=== PATIENT | female | born 1950 | race Caucasian/White ===

== ENCOUNTER 2017-11-28 11:08 | Emergency (ER) | payer MEDICARE ==
[~2017-11-28] VITALS: Ht 165.1 cm; Wt 71.2 kg
[2017-11-28] MEDS ORDERED: CIPRO500 MG PO (14:35)
[2017-11-28] MEDS ORDERED: FLAGYL500 MG PO (14:35)
== END 2017-11-28 14:52 | disposition home or self-care (01) ==
LOC: ED 11:08
DX: K57.92 Diverticulitis of intestine, part unspecified, without perforation or abscess without bleeding (principal)
CPT/HCPCS: 74177; 80053; 81001; 83605; 83690; 85025; 85610; 96374; 99284; J2405; J7030; Q9967

== ENCOUNTER 2018-01-20 07:24 | Day surgery (SDC) | payer MEDICARE ==
[~2018-01-20 07:24] MED LIST: CIPRO500 MG PO; FLAGYL500 MG PO
[2018-01-20] MEDS ORDERED: ASPIR-TRIN325 MG PO (07:44)
[2018-01-20] MEDS ORDERED: PRILOSEC OTC20 MG PO (07:45)
--- NOTE | 2018-01-20 08:56 | NUR ---
01/20/18 0856 Maegan Izaguirre 0895 PT ARRIVED IN PACU SLEEPY WITH NO C/O'S.
--- NOTE | 2018-01-21 07:33 | OR ---
[facility] [address], [place] [address] Signed DATE OF OPERATION: 01/20/2018 SURGEON: Jose Felix MD UPPER ENDOSCOPY REPORT PREOPERATIVE DIAGNOSES: 1. Epigastric abdominal pain. 2. Hiatal hernia. 3. Distal esophageal dysphagia. POSTOPERATIVE DIAGNOSES: 1. Large hiatal hernia (43-33 cm). 2. Mild gastroduodenitis. PROCEDURES: EGD with CLOtest and biopsies of the duodenum, pyloric bulb and antrum. ESTIMATED BLOOD LOSS: None. INDICATIONS: Ozzie is a 67-year-old female who has been having trouble with epigastric pain and distal esophageal dysphagia. She points at the xiphoid process. She is known to have hiatal hernia. I had met with Ozzie in the office and we had ordered a barium swallow as well. In the meantime, we scheduled her for the upper endoscopy. I gave her a pamphlet on upper endoscopy. We looked at that together in detail. She understands the nature of the test along with the risks including, but not limited to gas bloating, crampy abdominal pain, bleeding, perforation, requiring surgery, and missed diagnosis. We also discussed the need for IV conscious sedation. She had expressed understanding and wished to proceed. In addition, I gave her a [employer] brochure on acid reflux and we had gone through that in detail. She is quite aware there is surgery available for hiatal hernias. DESCRIPTION OF PROCEDURE: Ozzie was taken into our endoscopy suite and placed in the supine semi-recumbent position. She was given 6 mg of Versed and I think 100 mcg of fentanyl. The posterior oropharynx was anesthetized with Hurricaine spray. A bite block was utilized for the case. The adult gastroscope was introduced and advanced all the way down the esophagus and into the hiatal hernia itself. We could see a fairly large area of gastric mucosa Electronically Signed By: JOSE FELIX MD 01/21/18 0733 PATIENT NAME: OZZIE ESTRADA OPERATIVE REPORT DATE OF : 52 REPORT #: [id number] PHYSICIAN: JOSE FELIX MD PCP: FLAVIA KUHN MD REPORT IS CONFIDENTIAL AND NOT TO BE RELEASED WITHOUT AUTHORIZATION [facility] [address], [place] [address] Signed off to the side and it took us a few minutes to find the exit point. In the end, we discovered this was all part of her hiatal hernia. I could see radial folds of gastric mucosa, so I slowly into that area and with gentle pressure, went through and out into the body of the stomach and the antrum itself. At that point, anatomy was a little more clear. We followed that to the pyloric bulb and out into the duodenum itself. We took a biopsy of the duodenum as well as the pyloric bulb. There was just a little bit of irritation in the pyloric bulb and the distal half of the stomach. An additional biopsy was taken from the antrum for CLOtest as well as pathologic review. The scope had been retroflexed and we can see that she has a large hiatal hernia. The scope was withdrawn up through the area of the diaphragmatic crura and back into the hiatal hernia. She has a fairly large pouch involving the hiatal hernia off to the side. The crura measured at 43 cm. Eventually got the camera back to the GE junction and it measured out at 33 cm. Fortunately, no evidence of any irritation or ulceration in the hiatal hernia itself. It is clear that the food is entering this large hiatal hernia and then slowly exiting into the stomach and this is her sense of dysphagia. There was no disruption to the Z-line. No Carney's mucosa. No distal esophagitis. The middle and upper esophagus were unremarkable. After this, the gas was suctioned out and the gastroscope removed. Ozzie tolerated her procedure quite well. RECOMMENDATIONS: I will see Ozzie back in my office in the next 7-10 days. We will review the barium swallow as well as the upper endoscopy. It looks like she is going to need surgery to correct this large hiatal hernia. Jose Felix MD ALB/MODL /[id number] cc: Jose Felix MD Copies: JOSE FELIX MD ~ Electronically Signed By: JOSE FELIX MD 01/21/18 0733 PATIENT NAME: OZZIE ESTRADA OPERATIVE REPORT DATE OF : 52 REPORT #: [id number] PHYSICIAN: JOSE FELIX MD PCP: FLAVIA KUHN MD REPORT IS CONFIDENTIAL AND NOT TO BE RELEASED WITHOUT AUTHORIZATION
== END 2018-01-20 09:47 | disposition home or self-care (01) ==
LOC: DS 07:24 → OPS 07:24 → DS 09:00 → OPS 09:47
PROVIDERS: Colon & Rectal Surgery
PROC: 0DB78ZX Excision of Stomach, Pylorus, Via Natural or Artificial Opening Endoscopic, Diagnostic (ICD-10-PCS; 2018-01-20)
PROC: 0DB98ZX Excision of Duodenum, Via Natural or Artificial Opening Endoscopic, Diagnostic (ICD-10-PCS; principal; 2018-01-20 09:00)
DX: K29.90 Gastroduodenitis, unspecified, without bleeding (principal); K26.9 Duodenal ulcer, unspecified as acute or chronic, without hemorrhage or perforation; K44.9 Diaphragmatic hernia without obstruction or gangrene; Z79.899 Other long term (current) drug therapy
CPT/HCPCS: 86677; 88305; 99153; G0500; J2250; J3010; J7120

== ENCOUNTER 2018-03-18 06:01 | Emergency (ER) | payer MEDICARE ==
[~2018-03-18] VITALS: Ht 165.1 cm; Wt 59.0 kg
[~2018-03-18 06:01] MED LIST changes: +ASPIR-TRIN325 MG PO; +PRILOSEC OTC20 MG PO
[2018-03-18] MEDS ORDERED: ZANTAC150 MG PO (06:33)
[2018-03-18] MEDS ORDERED: ZOFRAN ODT4 MG PO (06:35)
== END 2018-03-18 06:58 | disposition home or self-care (01) ==
LOC: ED 06:01
DX: G89.29 Other chronic pain (principal); R10.13 Epigastric pain; E78.00 Pure hypercholesterolemia, unspecified; Z87.891 Personal history of nicotine dependence; Z79.899 Other long term (current) drug therapy
CPT/HCPCS: 99283

== ENCOUNTER 2021-05-09 10:55 | Inpatient (IN) | payer OTHER, MEDICARE ==
[~2021-05-09] VITALS: Ht 165.1 cm; Wt 64.3 kg
--- NOTE | ~2021-05-09 | DS ---
[facility] [address] [place], [place] [address] Draft ADMISSION DATE: 05/11/2021 DISCHARGE DATE: 05/14/2021 ADMISSION DIAGNOSIS: Left intertrochanteric hip fracture. DISCHARGE DIAGNOSIS: Left intertrochanteric hip fracture. PROCEDURE PERFORMED DURING THIS HOSPITALIZATION: Open reduction and internal fixation of left hip. BRIEF HISTORY: Ozzie is a 70-year-old female who suffered a ground level fall after catching her foot on a blanket. She landed directly on the left side. She ended up with a left femoral neck fracture as well as a proximal radius fracture. The radius fracture was elected to be treated nonoperatively; however, the intertrochanteric fracture needed surgery. Risks and benefits of this were discussed with her and she elected to proceed. She was taken to the operating room, underwent the procedure the next day after medical clearance. She tolerated the procedure well and was taken to the recovery room orthopedic floor. She was seen by Physical therapy and able to ambulate up and down the ackerman and up and down the stairs by the day of discharge. She was kept on DVT prophylaxis SCDs, TEDs, and aspirin per her previous protocol. She will be continued on this at home. Pain control was adequate throughout her hospitalization. She remained neurovascularly stable. She will be discharged to home with the above medications and follow up with me in 7-10 days. Evelio Lazaro MD BA/KAUR /[id number] Copies: PATIENT NAME: OZZIE ESTRADA DISCHARGE SUMMARY DATE OF : 52 REPORT #: [id number] PHYSICIAN: EVELIO LAZARO MD PCP: FLAVIA KUHN MD REPORT IS CONFIDENTIAL AND NOT TO BE RELEASED WITHOUT AUTHORIZATION [address] [address] Draft ~ PATIENT NAME: OZZIE ESTRADA DISCHARGE SUMMARY DATE OF : 52 REPORT #: [id number] PHYSICIAN: EVELIO LAZARO MD PCP: FLAVIA KUHN MD REPORT IS CONFIDENTIAL AND NOT TO BE RELEASED WITHOUT AUTHORIZATION
[~2021-05-09 10:55] MED LIST changes: +ZANTAC150 MG PO; +ZOFRAN ODT4 MG PO
--- OUTSIDE RECORDS SUMMARY | 2021-05-09 10:58 | XMS ---
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 Morales has no Care Guidelines for this patient. Marija VISIT COUNT (12 MO.) 1 LAUREANO Omalley TOTAL 1 NOTE: Visits indicate total known visits. ED/UCC VISIT TRACKING (12 MO.) 05/09/2021 10:56 LAUREANO [facility] [place] TYPE: Emergency COMPLAINT: - GLF, L ARM/HIP PAIN INPATIENT VISIT TRACKING (12 MO.) 07/14/2020 05:40 [facility] TYPE: Vascular Surgery DIAGNOSES: 00346. ABDOMINAL AORTIC ANEURYSM (AAA) WITHOUT RUPTURE 79852. Abdominal aortic aneurysm, without rupture [email or web address]
--- NOTE | 2021-05-09 17:35 | EKG ---
[facility] [address] [facility] [place] [facility] [place], [place] [address] Signed Normal sinus rhythm Inferior-posterior infarct , age undetermined Abnormal ECG No previous ECGs available Confirmed by BRENDAN MARC MD ([id number]) on 05/09/2021 5:35:46 PM Electronically Signed By: BRENDAN MARC MD 05/09/21 1735 PATIENT NAME: OZZIE ESTRADA Electrocardiogram DATE OF : 52 PHYSICIAN: BRENDAN MARC MD REPORT #: [id number] REPORT IS CONFIDENTIAL AND NOT TO BE RELEASED WITHOUT AUTHORIZATION
--- NOTE | 2021-05-09 19:15 | NUR ---
SHIFT REPORT RECEIVED FROM SARA MORALES. PT RESTING IN BED. NO NEEDS AT THIS TIME. CALL LIGHT IN REACH.
--- NOTE | 2021-05-09 22:00 | NUR ---
ASSESSMENT COMPLETED. SCHEDULED MEDS PROVIDED. PT LEFT HIP PAIN 8/, PRN PAIN MEDS PROVED. SCDs, MARCELLO HOSE AND HEEL PROTECTION ON. ICE PACKS PROVIDED. CMS INTACT. GCS 15, A&O X4. LUNGS CLEAR, HEART TONES REGULAR. ABD SOFT, NONTENDER, BOWEL TONES ACTIVE. NEW IV STARTED IN RIGHT FOREARM. RIGHT AC IV WNL, CDI, FLUSHED WELL. SLING ON LEFT ARM IN PLACE. LIMITED MOVEMENT OF LEFT ARM AND HIP/LEG. FENTON WNL. NO OTHER NEEDS. CALL LIGHT IN REACH.
--- NOTE | 2021-05-09 23:03 | NUR ---
ASSISTED NURSE WITH PATIENT MARCELLO CHAHAL, SCD'S, AND HEEL PROTECTORS. CALL LIGHT LEFT WITHIN REACH. NO OTHER IMMEDIATE NEEDS AT THIS TIME.
--- NOTE | 2021-05-10 01:00 | NUR ---
PT RESTING IN BED, EYES CLOSED. RR EVEN, UNLABRED. IV FLUIDS INFUSING PER ORDER. CALL LIGHT IN REACH.
--- NOTE | 2021-05-10 02:59 | NUR ---
SCHEDULED MED PROVIDED. CMS INTACT X4 EXTREMITIES. ASSESSMENT COMPLETED. GENERALIZED EDEMA IN LEFT HIP AND LEFT ELBOW. NO OTHER NEEDS. CALL LIGHT IN REACH.
--- NOTE | 2021-05-10 03:57 | NUR ---
PT RESTING IN BED, EYES CLOSED. RR EVEN, UNLABORED. CALL LIGHT IN REACH.
--- NOTE | 2021-05-10 05:00 | NUR ---
in to get vitals, with rn, linens change and surgical wipedown, kumar emptied at this time, no further needs
--- NOTE | 2021-05-10 06:12 | NUR ---
RECIEVED CALL FROM FROM BRISEIDA MORALES, DAY SURGERY CHARGE. MD HAS DELAYED PT SURGERY UNTIL NOON TODAY. PT HAS BEEN WIPED DOWN, LINENS AND GOWN CHANGED. THIS RN ASKED ABOUT 0600 ORAL PAIN MEDS BEING GIVEN, BRISEIDA MORALES STATES IT IS FINE TO GIVE THEM DUE TO THE DELAY.
--- NOTE | 2021-05-10 08:00 | NUR ---
REPORT RECEIVED FROM NIGHT RN AND PT. CARE RESUMED. PT. IS TEARFUL AND C/O SEVERE LEFT HIP PAIN THAT HAS NOT BEEN MANAGED BY SCHEDULED PAIN MEDS. MD NOTIFIED. GENERALIZED EDEMA PRESENT IN LT. HIP. ICE PACK IN PLACE. SCDS AND MARCELLO HOSE IN PLACE. IV SITES WNL AND FLUSH WELL. VITALS STABLE. GLYCERIN SWABS GIVEN. DISCUSSED PAIN MANAGEMENT, POST OP EXPECTATIONS AND MEDS. LEFT RESTING WITH CALL LIGHT IN REACH.
--- NOTE | 2021-05-10 08:55 | NUR ---
REPORT RECEIVED FROM NIGHT RN AND PT. CARE RESUMED. RN REPORTS PAIN HAS NOT BEEN WELL CONTROLLED OVER NIGHT. MD CALLED AND DILAUDID Q20 PRN ORDERED.
[2021-05-10] MEDS ORDERED: LISINOPRIL10 MG PO (09:48)
[2021-05-10] MEDS ORDERED: ATORVASTATIN CA40 MG PO (09:49)
--- NOTE | 2021-05-10 10:35 | NUR ---
PT. ASSISTED WITH SURG WIPE AND ADMIN IVP PAIN MED.
--- NOTE | 2021-05-10 11:26 | NUR ---
CONSTRUCTION ELECTRICIAN HERE FOR PT. LR INFUSING AND TXA, ANCEF HANGING. GLASSES, PHONE, TABLET LEFT WITH IN THE ROOM
--- NOTE | 2021-05-10 12:30 | NUR ---
PATIENT IN SURGERY. SPOKE WITH AFUA IN ROOM. PATIENT NORMALLY AMBULATORY USING NO DME. DRIVES. IS RETIRED. THEY HAVE 2 STEPS WITH RAIL INTO HOME. ONE LEVEL FOR LIVING. THEY HAVE WALK-IN SHOWER WITH SEAT. THEY DO HAVE WALKER AT HOME FROM HIS BROKEN LEG. HE WILL BRING IT IN TOMORROW FOR HER TO HAVE PT LOOK AT IT. HE DOES NOT THINK THEY NEED TO WORRY ABOUT COST OF MEDS/FOOD/UTILTIES. STATES "WELL WE LIVE ON TWO SOCIAL SECURITIES, BUT WE DO OK". HE STATES SHE WILL PROBABLY WANT TO DO PT AT [facility]. HE UNDERSTANDS WE DON'T KNOW WHAT ORDERS WILL BE FROM SURGEON YET. NO QUESTIONS AT THIS TIME. NO KNOWN BARRIERS TO HOME D/C AT THIS TIME.
--- NOTE | 2021-05-10 13:33 | NUR ---
05/10/21 1333 Thania Bennett 1311 PT ARRIVED TO PACU ON 6L VIA MASK, VSS. PT WAKES EASILY AND IS REORIENTED TO PACU. PT DENIES PAIN AND NAUSEA. PT UNABLE TO MOVE FEET AND SPINAL EDUCATION GIVEN. 1315 RN ENCOURGES DEEP BREATHING OFF AND ON DUE TO O2 DECREASED, O2 MAINTAINS WITH DEEP BREATHING. 1320 PT ASLEEP AND APNEA PERIOD NOTED. RN WAKES PT AND ENCOURAGES DEEP BREAHTING AND COUGHING. PT ABLE TO FOLLOW COMMAND. 1331 O2 REMOVED AND WARM BLACKET GIVEN.
--- NOTE | 2021-05-10 14:15 | NUR ---
PT. ARRIVED FROM SURGERY VIA STRETCHER AND REPORT RECEIVED FROM COMPOUND FILLER. PT IS ALERT AND ORIENTED. VITALS STABLE. LEFT HIP DRESSING HAS 3CM SHADOWING OF SERISANGUINOUS DRAINAGE AND OTHER MONK C.D.I. PT. DENIES PAIN. BILATERAL LOWER EXTREMITIES UP TO THE HIPS ARE NUMB DUE TO BLOCKS. LUNGS CLEAR THROUGHOUT. PT. GIVEN WATER, BLANKETS AND SCHEDULED MEDS. PT. LEFT RESTING WITH CALL LIGHT IN REACH AND AT BEDSIDE.
--- NOTE | 2021-05-10 15:30 | NUR ---
P.T. IN THE ROOM WORKING WITH PT. PT. IS ALERT AND ORIENTED. LEFT HIP DRESSING REMAINS UNCHANGED. MARCELLO HOSE, SCD IN PLACE AND ARM BRACE IN PLACE. VITALS STABLE. PT. ABLE TO MOVE LEGS AND IS CAN FEEL TOES AND LOWER EXTREMITIES. DENIES PAIN AT THIS TIME. TOLERATING PO WATER AND CRACKERS. LEFT RESTING WITH CALL LIGHT IN REACH.
--- NOTE | 2021-05-10 15:45 | NUR ---
PT. IS ALERT AND ORIENTED. SHE REPORTS VERY MILD LEFT HIP PAIN. ADMIN. TRAMADOL. VITALS STABLE. LEFT HIP DRESSING REMAINS UNCHANGED AND EDEMA PRESENT AT SITE. PT. ABLE TO FEEL LOWER EXTREMITY PRESSURE. BROUGHT APPLESAUCE AND CRACKERS. LEFT RESTING WITH CALL LIGHT IN REACH.
--- NOTE | 2021-05-10 16:30 | NUR ---
PT. IS ON THE PHONE WITH HER DAUGHTER. DENIES PAIN AT THIS TIME. LEFT HIP SURG SITE DRESSING HAS VERY SMALL AMOUNT OF SHADOWING. SITE IS FIRM AND EDEMA PRESENT. VITAL STABLE. TOLERATING SOFT FOODS AND SIPS OF WATER. DENIES NAUSEA. ICE CHANGED IN CRYOCUFF. PT. LEFT RESTING WITH CALL LIGHT IN REACH.
--- NOTE | 2021-05-10 16:57 | NUR ---
MED REC COMPLETE
--- NOTE | 2021-05-10 19:00 | NUR ---
SHIFT REPORT RECEIVED FROM DAYSHIFT RN PATRICE AT BEDSIDE, pt AWAKE AND RESTING IN BED. ACTICOAT DRESSING TO LEFT HIP INTACT WITH SMALL AMOUNT SEROSANGUINEOUS SHADOWING, WILL MONITOR. CYROCUFF IN PLACE ALONG WITH SCD'S, MARCELLO HOSE. LUE SPLINT IN PLACE, SET TO 90 DEGREES EARLIER BY . CALL LIGHT IN REACH, FRESH WATER GIVEN.
--- NOTE | 2021-05-10 20:45 | NUR ---
CALL LIGHT ANSWERED, pt REPORTS 8/10 PAIN. PRN NORCO GIVEN, SEE EMAR. pt BOOSTED IN BED, BLE ELEVATED WITH PILLOW. SCD'S AND MARCELLO HOSE IN PLACE. CYRO CUFF AT BEDSIDE. SKIN COLD TO THE TOUCH ABOVE LEFT HIP INCISION AND PINK IN COLOR. pt EDUCATED TO USE ICE INTERMITTENTLY TO ALLOW SKIN A BREAK FROM ICE, pt VERBALIZED UNDERSTANDING. NO FURTHER NEEDS, CALL LIGHT IN REACH.
--- NOTE | 2021-05-10 22:20 | NUR ---
SCHEDULED PAIN MEDICATION GIVEN, SEE EMAR. pt CONTINUES TO REPORT PAIN 03/20. NO FURTHER NEEDS, CALL LIGHT IN REACH. LUE SPLINT REMAINS AT 90 DEGREES, PLACED AND SET EALIER BY ON . CMS INTACT TO BLE AND BUE. MARCELLO HOSE AND SCD'S IN PLACE. pt REPORTS BEING ABLE TO FEEL ABOVE ANKLE, BUT ALSO REPORTS SHE CAN FEEL HER LEFT HIP, WILL CONTINUE TO MONITOR. NO FURTHER NEEDS. CALL LIGHT IN REACH.
--- NOTE | 2021-05-11 01:00 | NUR ---
pt BOOSTED IN BED WITH HELP FROM NEELA SIU, pt AWOKE TO VOICE AND REPORTS PAIN WAS "BETTER" AFTER LAST PAIN MEDICATION ADMINISTRATION. NO FURTHER NEEDS, CALL LIGHT IN REACH.
--- NOTE | 2021-05-11 02:30 | NUR ---
IN ROOM FOR SCHEDULED PAIN MEDICATION, SEE EMAR. pt REPORTS PAIN IMPROVED AND CURRENTLY RATES 4/10 ON PAIN SCALE. FIELD START REMOVED, CATHETER TIP INTACT. pt REPORTS CMS IS IMPROVING AND CAN FEEL UP TOWARDS THIGH, pt ABLE TO MOVE BLE AND WIGGLE TOES. SCD'S AND MARCELLO HOSE IN PLACE WITH ROLLED TOWEL UNDER BILATERAL HEELS. LUE SPLINT REMAINS AT 90 DEGREES. pt ASSISTED WITH SMALL POSITION CHANGE IN BED AND WARM BLANKET PROVIDED. NO CHANGE TO DRESSING, pt ENCOURAGED TO TAKE AN BREAK FROM ICE AND USE INTERMITTENTLY. pt VERBALIZED UNDERSTANDING, NO FURTHER NEEDS. CALL LIGHT IN REACH.
--- NOTE | 2021-05-11 06:20 | NUR ---
scheduled iv abx and po pain medications given, see emar. pt rates pain 4/10. iv site wnl and flushes easily. pt boosted in bed, no further needs, call light in reach.
--- NOTE | 2021-05-11 08:54 | NUR ---
REPORT RECEIVED FROM NIGHT RN AND PT. CARE RESUMED. PT. IS ALERT AND ORIENTED. SHE RATES LEFT HIP AND ARM PAIN 4/10 AND TOLERABLE. ARM SPLINT IN PLACE. LEFT HIP DRESSING HAS A SMALL AMOUNT OF SHADOWING BUT IS DRY AND INTACT. LUNGS CLEAR THROUGHOUT. CATHETER PATENT AND DRAINING DILUTE CLEAR URINE. DISCUSSED PAIN MANAGEMENT, AMBULATION AND POC. PT. LEFT RESTING WITH CALL LIGHT IN REACH.
--- NOTE | 2021-05-11 10:09 | NUR ---
PT. REQUESTED PAIN MEDS WHILE WORKING WITH P.T. ADMIN. SCHEDULED TRAMADOL AND NORCO. PT. STATES KNEE AND HIP PAIN ON THE LEFT ARE 10/10 WHILE AMBULATING AND 4/10 RESTING. PT. LEFT RESTING WITH CALL LIGHT IN REACH.
--- NOTE | 2021-05-11 10:32 | NUR ---
Patient is sitting in chair. Call light is in reach. Vitals, I&Os are done. Lunch was ordered.
--- NOTE | 2021-05-11 14:27 | NUR ---
Vitals, I&Os are complete. Patient is working with [employer]. Patient has had 25 % of lunch and would like to keep working on it.
--- NOTE | 2021-05-11 16:30 | NUR ---
PT. USED CALL LIGHT APPROPRATELY FOR MORE WATER. ASSSISTED WITH ORDERING DINNER AND BROUGHT WATER. DENIES FURTHER NEEDS OR PAIN.
--- NOTE | 2021-05-11 17:21 | NUR ---
PT. USED CALL LIGHT APPROPRIATELY FOR ASSISTANCE WITH GOING TO THE COMMODE. AMBULATED WITH FWW AND 2PA. HE HAD ATTENDS FROM HOME THAT WERE HEAVILY SOILED AND APPEARED TO BE IN PLACE FOR A WHILE. PT. HAD A BM AND VOIDED. CLEANED. HEAVY 2PA AND FWW BACK TO BED. PT. LEFT RESTING WITH BED ALARM ON AND CALL LIGHT IN REACH.
--- NOTE | 2021-05-11 17:54 | NUR ---
Patient vitals, I&Os are done. Call light is in reach.
--- NOTE | 2021-05-11 19:00 | NUR ---
SHIFT REPORT RECEIVED FROM DAYSHIFT ANDREW IBRAHIM AT BEDSIDE, pt AWAKE AND RESTING IN BED, ACTICOAT TO LEFT HIP INTACT WITH SCANT SEROSANGUINEOUS SHADOWING, WILL MONITOR. SCD'S AND MARCELLO HOSE IN PLACE WITH CYROCUFF TO LEFT HIP. pt DENIES NEEDS AND CONCERNS, CALL LIGHT IN REACH.
--- NOTE | 2021-05-11 22:43 | NUR ---
PT VS DONE, F/C CARE DONE, CALL LIGHT WITHIN REACH, BOOSTED PT TO HOB, NO FURTHER ASSISTANCE NEEDED AT THIS TIME
--- NOTE | 2021-05-11 22:45 | NUR ---
ASSESSMENT COMPLETE, SBP IN 90'S. pt STATES, "THAT'S NORMAL FOR ME, BEFORE MY SURGERY FOR IT TO BE THAT WAY". pt DENIES DIZZINESS, REMAINING VSS. REPORTS 5/10 PAIN IN LEFT HIP, SCHEDULED PAIN MEDICATIONS GIVEN (SEE EMAR). NO CHNAGE TO LEFT HIP ACTICOAT DRESSING SINCE START OF SHIFT, CYROCUFF IN PLACE ALONG WITH SCD'S, MARCELLO HOSE, AND ROLLED TOWL UNDER BILATERAL HEELS. IV SITE AND FLUSHES EASILY. NO ADDITIONAL NEEDS, CALL LIGHT IN REACH.
--- NOTE | 2021-05-11 23:05 | NUR ---
BP RESULT OF 94/53, MAP OF 64. pt DENIES DIZZINESS OR OTHER SYMPTOMS, SCHEDULED PAIN MEDICATION GIVEN, SEE EMAR. DR MARC CONSULTING AND MADE AWARE NO NEW ORDERS RECEIVED.
--- NOTE | 2021-05-12 00:28 | NUR ---
pt RESTING IN BED WITH EYES CLOSED, RR EVEN AND UNLABORED. NO DISTRESS NOTED, pt ON RA. SPO2 LOW 90'S, HR 70'S. CALL LIGHT IN REACH. NO S/SX OF PAIN OR DISTRESS NOTED. CALL LIGHT IN REACH.
--- NOTE | 2021-05-12 01:37 | NUR ---
ROUNDED ON pt, FRESH ICE WATER TO CYRO CUFF APPLIED, ICE IN PLACE TO LEFT HIP. NO ADDITIONAL NEEDS VERBALIZED AT THIS TIME. CALL LIGHT IN REACH.
--- NOTE | 2021-05-12 02:30 | NUR ---
SCHEDULED PAIN MEDICATION GIVEN (SEE EMAR) FOR 4/10 PAIN IN LEFT HIP. ICE IN PLACE TO LEFT HIP, SCD'S AND MARCELLO HOSE ALSO IN PLACE. pt DENIES ADDITIONAL NEEDS. pt BOOSTED IN BED WITH HELP FROM AGRICULTURE MANAGER, NO REDDNESS OR SKIN BREAKDOWN NOTED TO BUTTOCKS/COCCYX, WILL CONTINUE TO MONITOR. CALL LIGHT IN REACH.
--- NOTE | 2021-05-12 02:53 | NUR ---
provided pt with ice packs per RN, boosted pt to HOB
--- NOTE | 2021-05-12 04:16 | NUR ---
pt RESTING QUIETLY IN BED WITH EYES CLOSED, RR EVEN AND UNLABORED. NO DISTRESS OR NEEDS VERBALIZED. ICE REMAINS TO LEFT HIP, CALL LIGHT IN REACH. pt APPEARS RELAXED AND COMFORTABLE.
--- NOTE | 2021-05-12 06:18 | NUR ---
prn pain medication given for 02/17 pain, see emar. no further needs, call light in reach.
--- NOTE | 2021-05-12 07:38 | NUR ---
Patient awake and in a talkative mood. Updated white board. Patient accepted warm cloth for face. Cryo checked. Call light within reach. No further needs at this time.
--- NOTE | 2021-05-12 08:15 | NUR ---
This RN in room to discuss POC with pt. She is eager to be discharged, discussed pt condition and goals for her care. She is agreeable to stay at this time and continue working with PT, managing pain control. She states no further needs at this time.
--- NOTE | 2021-05-12 08:40 | NUR ---
Scheduled medications administered, assessment complete. Dressing to L hip C/D/I, small shadowing noted that maintenance supervisor 2nd shift RN reports as unchanged. Cryo cuff, SCDs, teds in place. Pt reports pain well managed at this time. Lungs clear, bowel tones active. Pt is A+O on room air. Splint to L arm WNL. She has no further needs, breakfast in room, call light in reach.
--- NOTE | 2021-05-12 09:53 | OR ---
[facility] [address], [place] [address] Signed DATE OF OPERATION: 05/10/2021 SURGEON: Evelio Lazaro MD PREOPERATIVE DIAGNOSIS: Left intertrochanteric hip fracture. POSTOPERATIVE DIAGNOSIS: Left intertrochanteric hip fracture. PROCEDURE PERFORMED: Open reduction and internal fixation of left hip. TELEPHONE APPOINTMENT CLERK: Mae Mott PA-C. Mae was present and critical for all portions of procedure. ANESTHESIA: Spinal. BLOOD LOSS: 100 mL. IMPLANTS: Four-hole Synthes DHS with 85 mm lag screw and four 4.5 mm screws. BRIEF HISTORY: Ozzie is a 70-year-old female, who suffered a ground level fall yesterday afternoon landing on her left side. She was eventually transported to the emergency department, where radiographs showed a minimally displaced intertrochanteric hip fracture. Risks and benefits of operative treatment were discussed with her and she elected to proceed. DESCRIPTION OF PROCEDURE: Once consent was obtained, she was taken to the operating room. After adequate anesthesia, she was placed on the fracture table. The right leg was placed in a fracture abducted and extended. The operative side was again placed in a traction boot, it was slightly abducted with internal rotation and slight traction. Radiographs showed the fracture to be anatomically reduced. The hip was then prepped and draped in a standard sterile fashion. The incision was marked out using a guidewire and carried through skin and subcutaneous tissue. The IT band was split longitudinally. Electronically Signed By: EVELIO LAZARO MD 05/12/21 0953 PATIENT NAME: OZZIE ESTRADA OPERATIVE REPORT DATE OF : 52 REPORT #: [id number] PHYSICIAN: EVELIO LAZARO MD PCP: FLAVIA KUHN MD REPORT IS CONFIDENTIAL AND NOT TO BE RELEASED WITHOUT AUTHORIZATION [facility] [address], [place] [address] Signed The vastus lateralis was then split with a Lucero and elevated off the lateral femur. The insertion guide for the guide pin of the DHS was then placed against the lateral femur and aligned up with the femoral head. It was advanced until it was in the center-center position on biplanar fluoroscopy. It was then measured to an 85. An 85 was selected. The triple reamer was then used to ream over the guidewire. The screw was then placed until it was well-seated in the center of the femoral head. The four-hole DHS was then placed over this and advanced until it was flushed with the lateral femur. It was then aligned in a longitudinal manner. The four distal screws were then drilled and appropriate length screws were placed. The final radiograph showed anatomic reduction and excellent placement of the plate and screws. The wound was copiously irrigated, closed and the IT band was closed using #2 Stratafix, subcutaneous tissue with #0 Stratafix, and skin with tommy. Wound was dressed with an Acticoat 7 dressing. She tolerated the procedure well. All sponge, needle, and instrument counts were correct. Evelio Lazaro MD BA/MODL /[id number] Copies: ~ Electronically Signed By: EVELIO LAZARO MD 05/12/21 0953 PATIENT NAME: OZZIE ESTRADA OPERATIVE REPORT DATE OF : 52 REPORT #: [id number] PHYSICIAN: EVELIO LAZARO MD PCP: FLAVIA KUHN MD REPORT IS CONFIDENTIAL AND NOT TO BE RELEASED WITHOUT AUTHORIZATION
--- NOTE | 2021-05-12 10:12 | NUR ---
PT AWAKE IN BED. PT TALKING ABOUT BEING UNHAPPY TO SPEND ANOTHER DAY AT THE HOSPITAL. CALL LIGHT IN REACH. FRESH ICE WATER GIVEN. CRYO REFILLED. FENTON EMPTIED. NO FURTHER NEEDS AT THIS TIME.
--- NOTE | 2021-05-12 10:40 | NUR ---
Scheduled medication administered. DC'd Kumar catheter per order WNL. Pt educated about voiding post kumar removal, verbalizes understanding. No further needs at this time.
--- NOTE | 2021-05-12 10:55 | NUR ---
Patient working with physical therapy
--- NOTE | 2021-05-12 12:50 | NUR ---
Pt working with physical therapy for 2nd time today. Pt denies needs from this RN
--- NOTE | 2021-05-12 14:08 | NUR ---
PATIENT IN BED WATCHING TV. CRYO FILLED. VITALS AND I&O'S CHARTED. CALL LIGHT IN REACH. NO FURTHER NEEDS AT THIS TIME.
--- NOTE | 2021-05-12 14:13 | NUR ---
Scheduled medications administered, assessment complete. Pt rates pain 4/10 and states tolerable at this time. Dressing to L hip visualized and small amount shadowing remains unchanged, dressing c/d/i. Cryo cuff, SCDs, teds in place. Assessment WNL. CMS intact, no edema noted. No further needs, call light in reach
--- NOTE | 2021-05-12 16:15 | NUR ---
Rounded on patient who is resting in bed with son at bedside, states no needs at this time, fresh water provided to patient and son. Call light in reach.
--- NOTE | 2021-05-12 17:00 | NUR ---
Pt requests assistance to use restroom, uses FWW and tolerates excellent. Back to bed and assessment complete, dressing to L hip visualized and remains WNL. Cryo, teds and SCDs in place. pt states no further needs and reports pain as 4/10 and tolerable. Call light in reach.
--- NOTE | 2021-05-12 18:15 | NUR ---
In room to take vitals, administer medication. Pt states 4/10 pain and tolerable at this time. Pt ambulates with FWW to bathroom to void with little assistance needed. No further needs at this time, pt's is in room and attentive to patient.
--- NOTE | 2021-05-12 18:25 | NUR ---
Pt worked extensively with PT today, ambulates with SBA to bathroom with FWW. Dressing to L hip C/D/I, CMS intact, no edema noted. L arm in splint at 90 degrees. Pt eating well, good PO intake and VQS. lungs clear, spo2 100%. Pain controlled well with scheduled medications, no PRN use.
--- NOTE | 2021-05-12 19:05 | NUR ---
SHIFT REPORT RECEIVED FROM IRENE RANKIN AT BEDSIDE, pt AWAKE AND RESTING IN BED. CYRO CUFF TO LEFT HIP. MARCELLO HOSE AND SCD'S BOTH IN PLACE. pt APPEARS COMFORTABLE AND RELAXED. CALL LIGHT IN REACH.
--- NOTE | 2021-05-12 21:49 | NUR ---
AMBULATED PT TO BR, 1PA FWW, LEFT TOE TOUCH. PT WALKED TO AND FROM BATHROOM MINIMAL ASSISTANCE. PT BACK IN BED, CALL LIGHT WITHIN REACH, BED IN LOWEST POSITION, NO FURTHER ASSISTANCE NEEDED AT THIS TIME.
--- NOTE | 2021-05-12 21:54 | NUR ---
ASSESSMENT COMPLETE, SCHEDULED MEDS GIVEN (SEE EMAR). pt REPORTS PAIN IS 5/10 TO LEFT HIP, ACTICOAT DRESSING UNCHANGED SINCE START OF SHIFT WITH SCANT SEROSANGUINEOUS SPOTTING, WILL MONITOR FOR CHANGES. BILATERAL MARCELLO HOSE AND SCD'S IN PLACE, CYRO CUFF TO LEFT HIP. pt COMPLAINT WITH CARE AND DENIES FURTHER NEEDS. CALL LIGHT IN REACH.
--- NOTE | 2021-05-13 00:36 | NUR ---
pt RESTING IN BED WITH EYES CLOSED AND RR EVEN AND UNLABORED, NO DISTRESS NOTED. pt APPEARS COMFORTABLE AND RELAXED. CALL LIGHT IN REACH.
--- NOTE | 2021-05-13 02:45 | NUR ---
SCHEDULED PO PAIN MEDICATION GIVEN, SEE EMAR. pt REPORTS 1-210 PAIN, NO NEW NEEDS OR CONCERNS. NO CHANGES TO ACTICOAT DRESSING. CYRO CUFF IN PLACE, CALL LIGHT IN REACH.
--- NOTE | 2021-05-13 06:38 | NUR ---
SCHEDULED PAIN MEDICATION GIVEN FOR 3/10 PAIN IN LEFT HIP, SEE EMAR. CYRO CUFF ICE REPLACED, pt UP SBA WITH NEELA BARAKAT TO ATTEMPT TO HAVE BM.
--- NOTE | 2021-05-13 06:52 | NUR ---
ASSISITED PT TO BR, FWW 1PA, PT HAD LOOSE BM. PT BACK TO BED, CALL LIGHT WITHIN REACH, NO FURTHER ASSITANCE NEEDED AT THIS TIME.
--- NOTE | 2021-05-13 07:15 | NUR ---
Bedside report received from Latha MORALES, pt resting in bed and states no needs at this time. She states no pain, A+O. Call light in reach.
--- NOTE | 2021-05-13 09:08 | NUR ---
PATIENT UP TO BATHROOM AND BACK TO SITTING ON EDGE OF BED, SBA FWW. LINENS CHANGED. VITALS AND I&O'S CHARTED. LOW BLOOD PRESSURE, RN NOTIFIED. FRESH WATER GIVEN. CALL LIGHT IN REACH. NO FURTHER NEEDS AT THIS TIME.
--- NOTE | 2021-05-13 10:25 | NUR ---
patient returns from working with physical therapy and states had "hot flash" and became dizzy. With rest she becomes asymptomatic, 77/44 BP, immediately retaken and reads 103/39 MAP 56. notified. Pt resting in bed with no needs, states feeling better at this time. Will continue to monitor.
--- NOTE | 2021-05-13 13:00 | NUR ---
Rounded on patient who is resting in bed. Pt has worked with physical therapy and received reports of good progress from Hari CONN. No further needs at this time, will continue plan of care.
--- NOTE | 2021-05-13 13:46 | NUR ---
PATIENT UP TO BATHROOM AND BACK TO BED, SBA FWW. VITALS AND I&O'S CHARTED. CRYO FILLED. FRESH WATER GIVEN. CALL LIGHT IN REACH. NO FURTHER NEEDS AT THIS TIME.
--- NOTE | 2021-05-13 15:30 | NUR ---
Rounded on patient who is resting in bed with family at bedside. She states no needs at this time, pain is well controlled. Dressing C/D/I, cryo, scds, teds in place. Ice water refilled. Call light in reach.
--- NOTE | 2021-05-13 18:10 | NUR ---
Scheduled tramadol administered, pt reports pain 2/10 and tolerable. Ambulates to BR with FWW and SBA with CHAIR CAR ATTENDANT assistance. Pt has no further needs, call light in reach.
--- NOTE | 2021-05-13 18:19 | NUR ---
PATIENT UP TO BATHROOM AND BACK TO BED, SBA FWW. PATIENT VERY GOOD ABOUT BEING IND. MUCH POSSIBLE. VITALS AND I&O'S CHARTED. CRYO FILLED. FRESH WATER GIVEN. CALL LIGHT IN REACH. NO FURTHER NEEDS AT THIS TIME.
--- NOTE | 2021-05-13 19:10 | NUR ---
SHIFT REPORT RECEIVED FROM IRENE RANKIN AT BEDSIDE. pt RESTING IN BED WITH EYES CLOSED, RR EVEN AND UNLABORED. MARCELLO CHAHAL, SCD'S, AND CYRO CUFF IN PLACE. CALL LIGHT IN REACH.
--- NOTE | 2021-05-13 22:25 | NUR ---
ASSESSMENT COMPLETE, SCHEDULED MEDS GIVEN (SEE EMAR). ACTICOAT TO LEFT HIP UNCHANGED, CYROCUFF IN PLACE. pt RECENTLY UP TO VOID SBA WITH FWW AND IS BACK IN BED. MARCELLO HOSE AND SCD'S IN PLACE. VSS, pt REPORTS PAIN IS 2-3/10. FRESH WATER PROVIDED, CALL LIGHT IN REACH.
--- NOTE | 2021-05-14 02:11 | NUR ---
pt RESTING IN BED WITH EYES CLOSED, RR EVEN AND UNLABORED. NO DISTRESS OR SIGNS OF PAIN NOTED. CALL LIGHT IN REACH.
--- NOTE | 2021-05-14 02:15 | NUR ---
SCHEDULED PAIN MEDICATION GIVEN FOR 110 PAIN, SEE EMAR. NO ACUTE OR NEW CHANGES TO ASSESSMENT. CALL LIGHT IN REACH.
--- NOTE | 2021-05-14 03:58 | NUR ---
CALL LIGHT ANSWERED, pt UP SBA WITH FWW TO VOID AND BACK TO BED. STEADY ON FEET. ROOM TIDIED AND FRESH ICE WATER TO CYRO CUFF, MARCELLO HOSE AND SCD'S REMAIN IN PLACE. NO FURTHER NEEDS, CALL LIGHT IN REACH.
--- NOTE | 2021-05-14 06:30 | NUR ---
SCHEDULED AM PAIN MEDS GIVEN, SEE EMAR. pt REPORTS PAIN 2-3. VS AND I&O'S COMPLETE. CRYO CUFF TO LEFT HIP. pt IN GOOD SPIRITS AND APPEARS COMFORTABLE. CALL LIGHT IN REACH. FRESH WATER PROVIDED.
--- NOTE | 2021-05-14 07:12 | NUR ---
REPORT RECEIVED FROM ANDREW BURCIAGA. PT RESTING IN BED WITH EYES CLOSED. BED IN SEMIFOWLER POSITION, HEAD OF BED ELEVATED TO 35 DEGREES. RESPIRATIONS EVEN AND UNLABORED. PT ALLOWED TO REST. CALL LIGHT WITHIN REACH. BED RAILS UP.
--- NOTE | 2021-05-14 08:31 | NUR ---
TOOK PATIENT TO BATHROOM W/ WALKER. SHE IS NOW BACK IN BED VISITING WITH . REFILLED CRYO. PATIENT ATE 50% OF BREAKFAST AND RECIEVED A 7UP. SHE DOES NOT NEED ANYTHING AT THIS TIME. CALL LIGHT IN REACH.
--- NOTE | 2021-05-14 09:33 | NUR ---
MORNING ASSSESSMENT AND MEDICATION DUE. THIS RN TO ROOM. PT RESTING IN BED WATCHING TV. PT REPORTS 2/10 PAIN IN LEFT HIP AND LEFT ELBOW. "HARDLY ANY" THAT IS TOLERATBLE AT THIS TIME, SCHEDULED MEDICATION GIVEN. PT DENIES NAUSEA. PT DENIES ANY REOCCURING HEADACHES OR FEELINGS OF PRESSURE IN HER HEAD. PT DENIES DIZZINESS. STATES "JUST THAT ONE TIME YESTERDAY." PT UP WITH STAND BY ASSIST AND FRONT WEEL WALKER WITH LEFT ARM/ELBOW ADAPTOR TO RESTROOM. PT DEMONSTRATES CORRECT TECHNIQUE TO GET UP OUT OF BED AND TRANSFER TO BEDSIDE. CMS INTACT WITH STRONG MILL ROLL REWINDER STRENGTH, PLANTAR AND DORSI FLEXTION NOTED. BRACE REMAINS IN PLACE OVER LEFT ARM, SETTINGS UNCHANGED. STRONG PULSES NOTED TO ALL EXTREMITIES, NORMAL SENSATION PER PT. PT REPORTS ONGOING DIARRHEA AND DECLINES MIRALAX, PT REPORTS SHE WOULD STILL LIKE TO TAKE SENNA. SOFT LOOSE BOWEL MOVEMENT NOTED ALONG WITH 400ML CLEAR YELLOW URINE. STAND BY ASSIST BACK TO BED. PT ABLE TO GET SELF INTO BED WITH OUT ASSISTANCE. CRYO CUFF AND MARCELLO HOSE IN PLACE. DRESSING OVER LEFT HIP WNL WITH NO NEW DRAINAGE NOTED, PEA SIZE SHADOWING NOTED, UNCHANGED. DR. ONEAL TO BEDSIDE FOR ROUNDS. PT ANTICIPATING DISCHARGE TODAY. NO ADDITIONAL REQUESTS OR COMPLAINTS. CALL LIGHT WITHIN REACH. BED RAILS UP.
[2021-05-14] MEDS ORDERED: ASPIRIN325 MG PO (09:35)
[2021-05-14] MEDS ORDERED: HYDROCODON-ACE1 EA11 PO (09:36)
[2021-05-14] MEDS ORDERED: SENNA LAX8.6 MG PO (09:36)
--- NOTE | 2021-05-14 09:50 | NUR ---
DISCHARGE ORDER PLACED. PT UPDATED ON PLAN OF CARE. IV DC'D PER PROTOCOL, GAUZE AND COBAN APPLIED. PT RESTING IN BED, WATCHING TV. NO ADDITIONAL REQUESTS OR COMPLAINTS. PT REPORTS SHE IS DOING HER IN BED EXERCISES. PT CALLING HER TO UPDATED HIM ON PLAN FOR DISCHARGE.
--- NOTE | 2021-05-14 10:27 | NUR ---
PATIENT SITTING UP IN BED. VITALS WERE ALL IN NORMAL RANGE. IS BACK VISITING IN ROOM. SHE DOES NOT NEED ANYTHING AT THIS TIME. CALL LAITHIN SORAYA.
--- NOTE | 2021-05-14 11:00 | NUR ---
THIS RN TO ROOM TO CHECK ON PT. PT DRESSED AND STATES SHE IS READY FOR DISCHARGE. PTS BROUGHT IN WALKER AND LEFT ARM REST ATTACHMENT. ARM REST DOES NOT FIT WALKER. DR. ONEAL CALLED AND STATES PT IS TO GO HOME WITH WALKER AND ARM REST FROM THE HOSPITAL THAT WAS USED DURING HER STAY AND PHYSICAL THERAPY HERE. CHARGE NURSE UPDATED. PT UPDATED. PT REPORTS 2/10 PAIN IN LEFT ELBOW AND HIP THAT IS "FINE." NO ADDITIONAL REQUESTS OR COMPLAINTS. CALL LIGHT WITHIN REACH. BED RAILS UP.
--- NOTE | 2021-05-14 11:03 | NUR ---
CALL TO RITIKA AT [facility] TO LET HER KNOW THAT PATIENT WAS DISCHARGING TODAY. PATIENT WILL LIKELY BORROW OUR WALKER TO ATTACH HER ARM PLATFORM TO.
--- NOTE | 2021-05-14 11:30 | NUR ---
PT READY FOR DISCHARGE. PTS , AFUA, RETREIVED WALKER FROM CAR. ARM REST ATTACHED AND APPROVED BY [facility]. VITAL SIGNS STABLE. DISCHRAGE INSTRUCTIONS REVEIWED WITH PT AND . PT AND VERBALIZE UNDERSTANDING OF INSTRUCTIONS, MEDICATIONS, WALKER USE, PHYSCIAL THERAPY, AND FOLLOW UP. CRYO CUFF USE AND INSTRUCTIONS REVIEWED WITH PT. PT VERBALIZES UNDERSTANDING. PT AND REPORT THEIR QUESTIONS HAVE BEEN ANSWERED. PT TRANSFERS SELF TO WHEELCHAIR WITH WALKER SUPPORT AND TOE TOUCH TO LEFT LEG. PT WHEELED FROM MED/SURG. NO ADDITIONAL REQUESTS OR CONCERNS.
--- NOTE | 2021-05-15 11:36 | NUR ---
HOME HEALTH PT WAS ORDERED AT DISCHARGE. CALLED PATIENT AT HOME. SHE IS DOING WELL. USING HER WALKER WHICH HAS THE EXTENSION FOR HER BROKEN ARM WELL. IS HOME HELPING HER. SHE IS AGREEABLE TO HOME HEALTH BUT STATES "I HOPE TO BE DOING WELL ENOUGH IN A COUPLE WEEKS TO GET TO THE [facility]" REFERRING TO OUTPATIENT THERAPY. SHE HAS NO PREFERENCE OF HOME HEALTH AGENCIES. DISCUSSED I WILL CALL AND SEE WHO IS AVAILABLE. CALLED [facility]. SPOKE WITH RILEY. SHE STATES THEY ALREADY HAVE THE ORDERS FROM DR ONEAL OFFICE. SHE STATES SHE WILL CALL PATIENT NOW AND GET ADMIT SET UP.
== END 2021-05-14 11:45 | disposition home or self-care (01) | DRG 482 ==
LOC: ED 10:55 → MS 15:56
PROVIDERS: ADMIT Specialist; ATTEND Specialist
PROC: 0QS704Z Reposition Left Upper Femur with Internal Fixation Device, Open Approach (ICD-10-PCS; principal; 2021-05-10 12:00)
DX: S72.142A Displaced intertrochanteric fracture of left femur, initial encounter for closed fracture (principal); Z20.822 Contact with and (suspected) exposure to COVID-19; R00.0 Tachycardia, unspecified; I95.9 Hypotension, unspecified; S52.135A Nondisplaced fracture of neck of left radius, initial encounter for closed fracture; I10 Essential (primary) hypertension; M81.0 Age-related osteoporosis without current pathological fracture; I25.10 Atherosclerotic heart disease of native coronary artery without angina pectoris; E78.5 Hyperlipidemia, unspecified; Z87.81 Personal history of (healed) traumatic fracture; Z79.899 Other long term (current) drug therapy; Z79.82 Long term (current) use of aspirin; Z98.890 Other specified postprocedural states; W01.0XXA Fall on same level from slipping, tripping and stumbling without subsequent striking against object, initial encounter
CPT/HCPCS: 01210; 29105; 51702; 64447; 72170; 73090; 73502; 73700; 76942; 80048; 80053; 81001; 83735; 85025; 85610; 93005; 93010; 96375; 96376; 97110; 97116; 97161; 97530; 99285-25; A9270; C9803; G0378; J0690; J1100; J1170; J2001; J2250; J2370; J2405; J2704; J2795; J3010; J3480; U0003

== ENCOUNTER 2021-06-21 09:45 | Emergency (ER) | payer MEDICARE ==
[~2021-06-21] VITALS: Ht 165.1 cm; Wt 59.0 kg
[~2021-06-21 09:45] MED LIST changes: +ASPIRIN325 MG PO; +ATORVASTATIN CA40 MG PO; +HYDROCODON-ACE1 EA11 PO; +LISINOPRIL10 MG PO; +SENNA LAX8.6 MG PO
--- OUTSIDE RECORDS SUMMARY | 2021-06-21 09:48 | XMS ---
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 - Has Care Guidelines CARE PROVIDERS FLAVIA KUHN Internal Medicine 05/10/2021-Current PHONE: Unknown Guidelines Source: [facility] Guidelines Date: 05/16/2021 Other Information: Patient admitted to [facility] for multiple fractures due to a fall. No follow up with PCP Dr. Kuhn scheduled yet. Care History Medical/Surgical 05/10/2021 [facility] - Patient is currently established with [facility]. If patient is seen in the ED during business hours. Please contact CHWs at [facility]. Care Recommendation: If this patient has had 5 or more Emergency Department visits in the last 12 months.\T\nbsp; Patient will require education on the scope and purpose of the ED as an acute care provider not a Primary Care Provider and should not be utilized for chronic conditions.\T\nbsp; These are guidelines and the provider should exercise clinical judgment when providing care. E.D. VISIT COUNT (12 MO.) 2 [facility] TOTAL 2 NOTE: Visits indicate total known visits. ED/UCC VISIT TRACKING (12 MO.) 06/21/2021 09:46 [facility] [place] TYPE: Emergency COMPLAINT: - POSS STROKE 05/09/2021 10:56 [facility] [place] TYPE: Emergency COMPLAINT: - GLF, L ARM/HIP PAIN INPATIENT VISIT TRACKING (12 MO.) 05/11/2021 11:[address] [facility] [place] TYPE: Medical Surgical COMPLAINT: - L HIP FRACTURE DIAGNOSES: - Other specified postprocedural states - Other specified postprocedural states - Hypotension, unspecified - Nondisplaced fracture of neck of left radius, initial encounter for closed fracture - Diverticulitis of intestine, part unspecified, without perforation or abscess without bleeding - Hypotension, unspecified - Displaced fracture of neck of left radius, initial encounter for closed fracture - Other residential (current) drug therapy - Personal history of (healed) traumatic fracture - Tachycardia, unspecified - Age-related osteoporosis without current pathological fracture - Fall on same level from slipping, tripping and stumbling without subsequent striking against object, initial encounter - Hyperlipidemia, unspecified - Unspecified fracture of shaft of left radius, initial encounter for closed fracture - supervisor intermediates (current) use of aspirin - Essential (primary) hypertension - 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 - Diverticulitis of intestine, part unspecified, without perforation or abscess without bleeding - Personal history of (healed) traumatic fracture - Hyperlipidemia, unspecified - Tachycardia, unspecified - Atherosclerotic heart disease of [place] coronary artery without angina pectoris - Essential (primary) hypertension - Displaced fracture of neck of left radius, initial encounter for closed fracture - Age-related osteoporosis without current pathological fracture - Displaced intertrochanteric fracture of left femur, initial encounter for closed fracture - Atherosclerotic heart disease of [place] coronary artery without angina pectoris - Fall on same level from slipping, tripping and stumbling without subsequent striking against object, initial encounter - halfway (current) use of aspirin - Unspecified fracture of shaft of left radius, initial encounter for closed fracture 07/14/2020 05:40 [facility] TYPE: Vascular Surgery DIAGNOSES: 37237. ABDOMINAL AORTIC ANEURYSM (AAA) WITHOUT RUPTURE [id number]. Abdominal aortic aneurysm, without rupture [email or web address]
[2021-06-21] MEDS ORDERED: PLAVIX75 MG PO (14:33)
--- NOTE | 2021-06-21 21:22 | EKG ---
[facility] [address] [place] [address] Signed Sinus rhythm with occasional premature ventricular complexes Nonspecific ST abnormality Abnormal ECG When compared with ECG of 09-MAY-2021 12:52, premature ventricular complexes are now present Criteria for Inferior-posterior infarct are no longer present Nonspecific T wave abnormality no longer evident in Inferior leads T wave inversion no longer evident in Anterior leads Confirmed by GONZÁLEZ FARAH DO ([id number]) on 06/21/2021 9:21:59 PM Electronically Signed By: GONZÁLEZ FARAH DO 06/21/212121 PATIENT NAME: OZZIE ESTRADA Electrocardiogram DATE OF : 52 PHYSICIAN: GONZÁLEZ FARAH DO REPORT #: [id number] REPORT IS CONFIDENTIAL AND NOT TO BE RELEASED WITHOUT AUTHORIZATION
== END 2021-06-21 15:09 | disposition home or self-care (01) ==
LOC: ED 09:45
DX: G45.9 Transient cerebral ischemic attack, unspecified (principal); Z20.822 Contact with and (suspected) exposure to COVID-19; E78.00 Pure hypercholesterolemia, unspecified; Z87.891 Personal history of nicotine dependence; Z79.82 Long term (current) use of aspirin; Z79.899 Other long term (current) drug therapy
CPT/HCPCS: 70450; 70496; 70498; 71045; 80053; 85025; 93005; 93010; 99285-25; C9803; Q9967; U0003